=== PATIENT | male | born 1965 | race Two or more races ===

== ENCOUNTER → 2017-05-18 | Outpatient (CLI) | payer MEDICARE, MEDICAID ==
[~2017-05-18] VITALS: Ht 175.3 cm; Wt 117.8 kg
[~2017-05-18] MED LIST: ACETAMINOPHEN 500 MG TABLET PO STA; ALBU6.7H INH; ASPI-515 PO; ATOR20TA9 PO; CEFAZOLIN 1,000 MG ONE; CETI-158 PO; CYCL-259 PO; DEXAMETHASONE 4 MG/ML, 1ML ONE; DULO60CA55 PO; EPIN0.3P2 INH; EPINEPHRINE 1 MG/ML, 1ML ONE; FENTANYL PF 250 MCG/5ML ONE; GABAPENTIN 300 MG CAPSULE PO STA; GLYCOPYRROLATE 0.2MG/1ML, 5ML ONE; HYDR12.58 PO; HYDR25TA6 PO; ISOS30TA8 PO; KETOROLAC 60 MG/2 ML ONE; LACTATED RINGERS 1,000 ML IV SCH; LISI-167 PO; MELO15TA24 PO; METO-93 PO; METO-95 PO; MIDAZOLAM 1 MG/ML, 2ML ONE; MONT10TA9 PO; MULT-412 PO; NEOSTIGMINE 1 MG/ML, 10ML ONE; NITR0.4T28 SL; ONDANSETRON 2MG/ML, 2ML ONE; OXYB5TAB7 PO; OxyconTIN ER 10 MG TAB.ER PO STA; PROPOFOL 10 MG/ML, 20ML ONE; ROCURONIUM 10 MG/ML ONE; ROPIvacaine/PF 0.2%, 20 ML ONE; SODIUM CHLORIDE 0.9% 0 ML ONE; SUCCINYLCHOLINE 20 MG/ML, 10ML ONE; TAMS0.4C2 PO; TEST100V2 INJ; TRAM50TA2 PO; TRANEXAMIC ACID 100 MG/ML, 10ML ONE; TRAZ50TA18 PO; VANCOMYCIN 2,000 MG in SODIUM CHLORIDE 0.9% 500 ML IV ONE; VANCOMYCIN PER PHARMACY MC STA; ZOLP10TA5 PO
[2017-05-18 10:15] VITALS: BP 153/93
== END | disposition home or self-care (01) ==
LOC: SDC 06:30 → EDSTATUS 09:30 → UNDOADMIN 09:35 → ORIP 09:35 → UNDODISIN 12:11
PROVIDERS: ATTEND Orthopaedic Surgery
DX: M17.32 Unilateral post-traumatic osteoarthritis, left knee (principal); Z53.9 Procedure and treatment not carried out, unspecified reason
CPT/HCPCS: J3370; J7040; J7120; J0171; J0690; J1100; J1885; J2250; J2405; J2704; J2710; J2795; J3010; J3490; J0330

== ENCOUNTER 2017-06-01 09:33 | Inpatient (IN) | payer MEDICARE, MEDICAID ==
[~2017-06-01] VITALS: Ht 175.3 cm; Wt 125.8 kg
[~2017-06-01 09:33] MED LIST changes: -ACETAMINOPHEN 500 MG TABLET PO STA; -CEFAZOLIN 1,000 MG ONE; -DEXAMETHASONE 4 MG/ML, 1ML ONE; -FENTANYL PF 250 MCG/5ML ONE; -GABAPENTIN 300 MG CAPSULE PO STA; -GLYCOPYRROLATE 0.2MG/1ML, 5ML ONE; -LACTATED RINGERS 1,000 ML IV SCH; -MIDAZOLAM 1 MG/ML, 2ML ONE; -NEOSTIGMINE 1 MG/ML, 10ML ONE; -ONDANSETRON 2MG/ML, 2ML ONE; -OxyconTIN ER 10 MG TAB.ER PO STA; -PROPOFOL 10 MG/ML, 20ML ONE; -ROCURONIUM 10 MG/ML ONE; -SODIUM CHLORIDE 0.9% 0 ML ONE; +SODIUM CHLORIDE 0.9% 100 ML ONE; -SUCCINYLCHOLINE 20 MG/ML, 10ML ONE; -VANCOMYCIN 2,000 MG in SODIUM CHLORIDE 0.9% 500 ML IV ONE; -VANCOMYCIN PER PHARMACY MC STA
[2017-06-01] MEDS ORDERED: VANCOMYCIN PER PHARMACY MC STA (09:52)
[2017-06-01] MEDS ORDERED: PLEASE ENTER HEIGHT AND WEIGHT MC SCH (10:00)
[2017-06-01] MEDS ORDERED: LACTATED RINGERS 1,000 ML IV SCH (10:16)
[2017-06-01] MEDS ORDERED: VANCOMYCIN 2,000 MG in SODIUM CHLORIDE 0.9% 500 ML IV ONE (10:30)
[2017-06-01] MEDS ORDERED: ACETAMINOPHEN 500 MG TABLET PO ONE (10:30)
[2017-06-01] MEDS ORDERED: OxyconTIN ER 10 MG TAB.ER PO ONE (10:30)
[2017-06-01] MEDS ORDERED: GABAPENTIN 300 MG CAPSULE PO ONE (10:30)
[2017-06-01 11:23] VITALS: BP 159/91
[2017-06-01] MEDS ORDERED: MIDAZOLAM 1 MG/ML, 2ML ONE (11:56)
[2017-06-01] MEDS ORDERED: FENTANYL PF 100 MCG/2ML ONE ×3 (11:56→15:13)
[2017-06-01] MEDS ORDERED: MIDAZOLAM 1 MG/ML, 2ML IV PRN (12:30)
[2017-06-01] MEDS ORDERED: MEPERIDINE/PF 25MG/0.5ML IVPush PRN (12:30)
[2017-06-01] MEDS ORDERED: EPHEDRINE 50 MG/ML, 1ML IVPush PRN (12:30)
[2017-06-01] MEDS ORDERED: FENTANYL PF 100 MCG/2ML IV PRN (12:30)
[2017-06-01] MEDS ORDERED: PROMETHAZINE 25 MG/ML, 1ML IV PRN (12:30)
[2017-06-01] MEDS ORDERED: DIAZEPAM 5 MG/ML, 2ML IVPush PRN (12:30)
[2017-06-01] MEDS ORDERED: OXYcodone 5 MG/5 ML ORAL.SOL UDC PO PRN (12:30)
[2017-06-01] MEDS ORDERED: hydrALAzine 20 MG/ML, 1ML IV PRN (12:30)
[2017-06-01] MEDS ORDERED: ONDANSETRON 2MG/ML, 2ML IVPush PRN (12:30)
[2017-06-01] MEDS ORDERED: LABETALOL 5MG/ML, 20ML IV PRN (12:30)
[2017-06-01] MEDS ORDERED: HYDROcodone/APAP 7.5-325MG/15ML UDC PO PRN (12:30)
[2017-06-01] MEDS ORDERED: METOPROLOL 1 MG/ML, 5ML IV PRN (12:30)
[2017-06-01] MEDS ORDERED: ALBUTEROL SULFATE 2.5 MG/3 ML NPPB PRN (12:30)
[2017-06-01] MEDS ORDERED: hydrALAzine 20 MG/ML, 1ML ONE ×2 (12:47→14:11)
[2017-06-01] MEDS ORDERED: HYDROmorphone 1 MG/ML, 1ML ONE ×2 (14:09→15:13)
[2017-06-01] MEDS ORDERED: DEXAMETHASONE 4 MG/ML, 1ML ONE (14:11)
[2017-06-01] MEDS ORDERED: ONDANSETRON 2MG/ML, 2ML ONE (14:11)
[2017-06-01] MEDS ORDERED: LABETALOL 5MG/ML, 20ML ONE (14:11)
[2017-06-01] MEDS ORDERED: PROPOFOL 10 MG/ML, 20ML ONE (14:11)
[2017-06-01] MEDS ORDERED: CEFAZOLIN 1,000 MG ONE (14:11)
[2017-06-01] MEDS ORDERED: DIAZEPAM 5 MG TABLET PO PRN (15:00)
[2017-06-01] MEDS ORDERED: ONDANSETRON 4 MG TABLET PO PRN (15:00)
[2017-06-01] MEDS ORDERED: TRANEXAMIC ACID 1,000 MG in SODIUM CHLORIDE 0.9% 100 ML IVPB ONE (15:00)
[2017-06-01] MEDS ORDERED: ONDANSETRON 2MG/ML, 2ML IV PRN (15:00)
[2017-06-01] MEDS ORDERED: ALUMINUM/MAG/SIMETHICONE 30 ML UDC PO PRN (15:00)
[2017-06-01] MEDS ORDERED: ACETAMINOPHEN 650 MG/20.3 ML UDC PO PRN (15:00)
[2017-06-01] MEDS ORDERED: SENNA/DOCUSATE TABLET PO PRN (15:00)
[2017-06-01] MEDS ORDERED: MAGNESIUM HYDROXIDE 8%, 30ML UDC PO PRN (15:00)
[2017-06-01] MEDS ORDERED: DIPHENHYDRAMINE 25 MG CAPSULE PO PRN (15:00)
[2017-06-01] MEDS ORDERED: OXYcodone 5 MG/5 ML ORAL.SOL UDC ONE (15:13)
[2017-06-01] MEDS: HYDROmorphone 1 MG/ML, 1ML IV PRN ×4 (15:16→22:56)
[2017-06-01] MEDS ORDERED: PROMETHAZINE 25 MG/ML, 1ML ONE (15:30)
[2017-06-01] MEDS: D5%-0.45NACL+KCL 20MEQ 1,000 ML IV SCH (16:58)
[2017-06-01] MEDS ORDERED: CYCLOBENZAPRINE 10 MG TABLET PO PRN (17:00)
[2017-06-01] MEDS ORDERED: NITROGLYCERIN 0.4 MG BOTTLE (25 TABS) SL PRN (17:30)
[2017-06-01] MEDS ORDERED: ALBUTEROL INH PRN (17:30)
[2017-06-01] MEDS: OXYcodone IR 5MG TABLET PO PRN (19:19)
[2017-06-01 19:45] VITALS: BP 133/73
[2017-06-01] MEDS ORDERED: TAMSULOSIN 0.4 MG CAP.ER.24H PO SCH (21:00)
[2017-06-01] MEDS ORDERED: ATORVASTATIN 20 MG TABLET PO SCH (21:00)
[2017-06-01] MEDS: DOCUSATE 100 MG CAPSULE PO SCH (22:49)
[2017-06-01] MEDS: CEFAZOLIN PMX 1GM/50ML 50 ML IVPB SCH (22:50)
[2017-06-01] MEDS ORDERED: VANCOMYCIN PMX 1GM/200ML 200 ML IVPB ONE (23:00)
[2017-06-02 00:51] VITALS: BP 135/84
[2017-06-02] MEDS: HYDROmorphone 1 MG/ML, 1ML IV PRN ×3 (01:42→10:23)
[2017-06-02] MEDS: OXYcodone IR 5MG TABLET PO PRN ×4 (04:13→12:14)
[2017-06-02 05:12] VITALS: BP 121/59
[2017-06-02 05:19] LABS: HEMATOCRIT 42.5 % (39.2-51.8); HEMOGLOBIN 14.5 g/dL (13.7-18.0)
[2017-06-02] MEDS ORDERED: METOPROLOL SUCCINATE 100 MG TAB.ER.24H PO SCH (06:00)
[2017-06-02] MEDS ORDERED: DEXAMETHASONE 4 MG/ML, 1ML IVPush SCH (06:00)
[2017-06-02] MEDS: CEFAZOLIN PMX 1GM/50ML 50 ML IVPB SCH (06:39)
[2017-06-02 07:04] VITALS: BP 139/66
[2017-06-02] MEDS: D5%-0.45NACL+KCL 20MEQ 1,000 ML IV SCH (08:30)
[2017-06-02] MEDS: DOCUSATE 100 MG CAPSULE PO SCH (08:38)
[2017-06-02] MEDS ORDERED: ASPI-621 PO (08:52)
[2017-06-02] MEDS ORDERED: ONDA4TAB10 PO (08:53)
[2017-06-02] MEDS ORDERED: DOCU-131 PO (08:53)
[2017-06-02] MEDS ORDERED: DIAZ5TAB PO (08:54)
[2017-06-02] MEDS ORDERED: OXYC5CAP2 PO (08:57)
[2017-06-02] MEDS ORDERED: HYDROCHLOROTHIAZIDE 12.5 MG CAPSULE PO SCH (09:00)
[2017-06-02] MEDS ORDERED: DULOXETINE 30 MG CAPSULE.DR PO SCH (09:00)
[2017-06-02] MEDS ORDERED: LISINOPRIL 20 MG TABLET PO SCH (09:00)
[2017-06-02] MEDS ORDERED: CETIRIZINE 10 MG TABLET PO SCH (09:00)
[2017-06-02] MEDS ORDERED: FLU VACC QS2017-18 (36MOS+) UP/PF 0.5 ML IM-VACC ONE (11:00)
[2017-06-02 12:00] VITALS: BP 139/66
[2017-06-02] MEDS ORDERED: KETOROLAC 30 MG/1 ML IV SCH (15:00)
[2017-06-02] MEDS ORDERED: ASPIRIN 81 MG TABLET EC PO SCH (18:00)
== END 2017-06-02 12:30 | disposition home or self-care (01) | DRG 470 ==
LOC: ORIP 09:33 → 4NOR 16:36 → DCLOUNGE 06-02 12:20
PROVIDERS: ADMIT Orthopaedic Surgery; ATTEND Orthopaedic Surgery
PROC: 0SPC04Z Removal of Internal Fixation Device from Right Knee Joint, Open Approach (ICD-10-PCS; 2017-06-01)
PROC: 0SRC069 Replacement of Right Knee Joint with Oxidized Zirconium on Polyethylene Synthetic Substitute, Cemented, Open Approach (ICD-10-PCS; principal; 2017-06-01 11:45)
DX: M17.31 Unilateral post-traumatic osteoarthritis, right knee (principal); M32.9 Systemic lupus erythematosus, unspecified; E66.01 Morbid (severe) obesity due to excess calories; Z68.41 Body mass index [BMI] 40.0-44.9, adult; E78.5 Hyperlipidemia, unspecified; G47.00 Insomnia, unspecified; M54.5 Low back pain; M79.7 Fibromyalgia; I10 Essential (primary) hypertension; J45.909 Unspecified asthma, uncomplicated; M48.00 Spinal stenosis, site unspecified; G89.4 Chronic pain syndrome; I25.10 Atherosclerotic heart disease of native coronary artery without angina pectoris; Z88.8 Allergy status to other drugs, medicaments and biological substances; Z91.030 Bee allergy status
CPT/HCPCS: 36415; 85014; 85018; 90686; C1713; J0171; J0690; J1100; J1170; J1885; J2250; J2405; J2550; J2704; J2795; J3010; J3370; C1776; J0360; J3480; J7040; J7120

== ENCOUNTER → 2018-03-19 | Outpatient (CLI) | payer MEDICARE, MEDICAID ==
[~2018-03-19] MED LIST changes: +ASPI-621 PO; +DIAZ5TAB PO; +DOCU-131 PO; -EPINEPHRINE 1 MG/ML, 1ML ONE; -KETOROLAC 60 MG/2 ML ONE; +ONDA4TAB10 PO; +OXYC5CAP2 PO; -ROPIvacaine/PF 0.2%, 20 ML ONE; -SODIUM CHLORIDE 0.9% 100 ML ONE; -TRANEXAMIC ACID 100 MG/ML, 10ML ONE; +TRAZ-136 PO; -TRAZ50TA18 PO
[2018-03-19 11:24] LABS: BASOPHILS # (AUTO) 0.02 x10^3/uL (0-0.1); BASOPHILS % (AUTO) 0 % (0-1); EOSINOPHILS # (AUTO) 0.13 x10^3/uL (0-0.4); EOSINOPHILS % (AUTO) 1 % (1-7); LYMPHOCYTES # (AUTO) 1.74 x10^3/uL (1-3.4); LYMPHOCYTES % (AUTO) 15 % (22-44); MD NO; MEAN CORPUSCULAR HEMOGLOBIN 31.4 pg (27.5-34.5); MEAN CORPUSCULAR VOLUME 92.4 fL (81-97); MEAN PLATELET VOLUME 8.4 fL (7.4-10.4); MONOCYTES # (AUTO) 0.61 x10^3/uL (0.2-0.8); MONOCYTES % (AUTO) 5 % (2-9); NEUTROPHILS % (AUTO) 79 % (42-75); PLATELET COUNT 183 x10^3/uL (130-400); RED BLOOD COUNT 5.95 x10^6/uL (4.38-5.82); RED CELL DISTRIBUTION WIDTH 15.8 % (9.4-14.8)
[2018-03-19 11:37] LABS: ANION GAP 4 mmol/L (5-15); CALCIUM 8.7 mg/dL (8.5-10.1); CHLORIDE 101 mmol/L (98-107); CREATININE 1.09 mg/dL (0.7-1.3)
== END | disposition home or self-care (01) ==
LOC: RAD 11:10
PROVIDERS: ATTEND Family Medicine
DX: J18.9 Pneumonia, unspecified organism (principal); Z86.718 Personal history of other venous thrombosis and embolism
CPT/HCPCS: 36415; 71046; 80048; 85025

== ENCOUNTER → 2018-09-20 | Outpatient (CLI) | payer MEDICARE, MEDICAID ==
[~2018-09-20] MED LIST changes: -ASPI-621 PO; +ASPI81TA45 PO; +ATOR20TA37 PO; -ATOR20TA9 PO; -HYDR12.58 PO; +HYDROCHLOROTH12.5 MG PO; -TRAZ-136 PO; +TRAZ50TA66 PO
== END | disposition home or self-care (01) ==
LOC: CFH 12:47
PROVIDERS: ATTEND Nurse Practitioner Family
DX: J84.10 Pulmonary fibrosis, unspecified (principal)
CPT/HCPCS: 71250